=== PATIENT | male | born 1985 | race Two or more races ===

== ENCOUNTER 2017-04-15 22:45 | Emergency (ER) | payer OTHER ==
[2017-04-15] MEDS: IBUPROFEN 400 MG TABLET. PO (23:25)
[2017-04-15] MEDS: HYDROcodone/APAP 5/325MG 1 TAB TABLET PO (23:26)
== END 2017-04-15 23:30 | disposition home or self-care (01) ==
LOC: ER 22:45
DX: M70.31 Other bursitis of elbow, right elbow (principal); L03.113 Cellulitis of right upper limb
CPT/HCPCS: 99283

== ENCOUNTER 2019-03-28 20:29 | Emergency (ER) | payer OTHER ==
[~2019-03-28] VITALS: Ht 172.7 cm; Wt 88.5 kg
[~2019-03-28 20:29] MED LIST: ACET1TAB33 PO; CEPH-264 PO; NAPR-695 PO
[2019-03-28 20:47] LABS: BILIRUBIN,URINE NEGATIVE (NEG); CLARITY,URINE CLEAR; COLOR,URINE YELLOW; NITRITE,URINE NEGATIVE (NEG); PH,URINE 6.5; PROTEIN,URINE NEGATIVE (NEG-TRACE)
[2019-03-28 20:53] LABS: BACTERIA,URINE 0 /HPF (0-FEW); RBC,URINE RARE /HPF (0-2); SQUAMOUS EPITHELIAL CELL,UR OCC /LPF; WBC,URINE OCC /HPF (0-4)
--- NOTE | 2019-03-28 23:06 | PHYS DOC ---
Past Medical History Past Medical History: No Pertinent History Past Surgical History: No Surgical History Alcohol Use: Occasionally Drug Use: None Adult General Chief Complaint Chief Complaint: FLANK PAIN HPI HPI 33-year-old male presents to the emergency Department complaints of bilateral flank pain, lower abdominal pain. Patient states this started prostate one week ago. He describes sharp pain that comes and goes now constant. Denies any nausea, vomiting, diarrhea, fever. Denies in pain with urination or difficulty with urinating. He does drink alcohol. No past medical history. Nothing makes his pain worse, nothing makes his pain better. When asked why he presented to the emergency department after one week, he states the pains are more consistent today. Review of Systems Review of Systems Constitutional: Denies fever or chills [] Eyes: Denies change in visual acuity, redness, or eye pain [] HENT: Denies nasal congestion or sore throat [] Respiratory: Denies cough or shortness of breath [] Cardiovascular: No additional information not addressed in HPI [] GI: + abdominal pain, no nausea, vomiting, bloody stools or diarrhea [] : Denies dysuria or hematuria [] Musculoskeletal:bilateral flank pain Integument: Denies rash or skin lesions [] Neurologic: Denies headache, focal weakness or sensory changes [] All other systems were reviewed and found to be within normal limits, except as documented in this note. Current Medications Current Medications Current Medications Medications (Trade) Dose Ordered Sig/Carly Start Time Stop Time Status Last Admin Dose Admin Info (CONTRAST GIVEN -- Rx MONITORING) 1 each PRN DAILY PRN 03/28/19 23:45 03/30/19 23:44 Iohexol (Omnipaque 300 Mg/ml) 75 ml 1X ONCE 03/28/19 23:45 03/28/19 23:46 DC 03/28/19 23:53 75 ML Ketorolac Tromethamine (Toradol 30mg Vial) 30 mg 1X ONCE 03/28/19 23:15 03/28/19 23:16 DC 03/28/19 23:08 30 MG Allergies Allergies Allergies Coded Allergies Type Severity Reaction Last Updated Verified No Known Drug Allergies 04/15/17 No Physical Exam Physical Exam Constitutional: Well developed, well nourished, no acute distress, non-toxic appearance. [] HENT: Normocephalic, atraumatic, bilateral external ears normal, oropharynx moist, no oral exudates, nose normal. [] Eyes: PERRLA, EOMI, conjunctiva normal, no discharge. [] Cardiovascular:Heart rate regular rhythm, no murmur [] Lungs & Thorax: Bilateral breath sounds clear to auscultation [] Abdomen: Bowel sounds normal, soft, no tenderness, no masses, no pulsatile masses. [] Skin: Warm, dry, no erythema, no rash. [] Back: bilateral CVA tenderness however negative UA Extremities: No tenderness, no edema. [] Neurologic: Alert and oriented X 3, no focal deficits noted. [] Psychologic: Affect normal, judgement normal, mood normal. [] Current Patient Data Vital Signs Vital Signs Date Time Temp Pulse Resp B/P (MAP) Pulse Ox O2 Delivery O2 Flow Rate FiO2 03/28/19 22:34 85 17 96 Room Air 03/28/19 21:15 98.0 118/77 (91) 98.0 Lab Values Laboratory Tests Test 03/28/19 20:30 03/28/19 22:25 Urine Collection Type Void Urine Color Yellow Urine Clarity Clear Urine pH 6.5 Urine Specific [place] >=1.030 Urine Protein Negative mg/dL (NEG-TRACE) Urine Glucose (UA) Negative mg/dL (NEG) Urine Ketones (Stick) Negative mg/dL (NEG) Urine Blood Negative (NEG) Urine Nitrite Negative (NEG) Urine Bilirubin Negative (NEG) Urine Urobilinogen Dipstick 1.0 mg/dL (0.2 mg/dL) Urine Leukocyte Esterase Negative (NEG) Urine RBC Rare /HPF (0-2) Urine WBC Occ /HPF (0-4) Urine Squamous Epithelial Cells Occ /LPF Urine Bacteria 0 /HPF (0-FEW) Urine Mucus Marked /LPF White Blood Count 11.0 x10^3/uL (4.0-11.0) Red Blood Count 5.08 x10^6/uL (4.30-5.70) Hemoglobin 15.5 g/dL (13.0-17.5) Hematocrit 45.9 % (39.0-53.0) Mean Corpuscular Volume 90 fL (79-100) Mean Corpuscular Hemoglobin 31 pg (25-35) Mean Corpuscular Hemoglobin Concent 34 g/dL (31-37) Red Cell Distribution Width 13.3 % (11.5-14.5) Platelet Count 210 x10^3/uL (140-400) Neutrophils (%) (Auto) 60 % (31-73) Lymphocytes (%) (Auto) 27 % (24-48) Monocytes (%) (Auto) 10 % (0-9) H Eosinophils (%) (Auto) 2 % (0-3) Basophils (%) (Auto) 0 % (0-3) Neutrophils # (Auto) 6.6 x10^3/uL (1.8-7.7) Lymphocytes # (Auto) 3.0 x10^3/uL (1.0-4.8) Monocytes # (Auto) 1.1 x10^3/uL (0.0-1.1) Eosinophils # (Auto) 0.3 x10^3/uL (0.0-0.7) Basophils # (Auto) 0.0 x10^3/uL (0.0-0.2) Sodium Level 142 mmol/L (136-145) Potassium Level 3.4 mmol/L (3.5-5.1) L Chloride Level 102 mmol/L (98-107) Carbon Dioxide Level 30 mmol/L (21-32) Anion Gap 10 (6-14) Blood Urea Nitrogen 16 mg/dL (8-26) Creatinine 0.9 mg/dL (0.7-1.3) Estimated GFR (Cockcroft-Gault) 97.8 BUN/Creatinine Ratio 18 (6-20) Glucose Level 82 mg/dL (70-99) Calcium Level 8.8 mg/dL (8.5-10.1) Total Bilirubin 0.6 mg/dL (0.2-1.0) Aspartate Amino Transferase (AST) 19 U/L (15-37) Alanine Aminotransferase (ALT) 40 U/L (16-63) Alkaline Phosphatase 80 U/L (46-116) Total Protein 7.9 g/dL (6.4-8.2) Albumin 4.1 g/dL (3.4-5.0) Albumin/Globulin Ratio 1.1 (1.0-1.7) Lipase 113 U/L (73-393) Laboratory Tests 03/28/19 22:25 Laboratory Tests 03/28/19 22:25 EKG EKG [] Radiology/Procedures Radiology/Procedures [] Course & Med Decision Making Course & Med Decision Making Pertinent Labs and Imaging studies reviewed. (See chart for details) [] 33-year-old male presents to the emergency Department complaints of bilateral flank pain, lower abdominal pain. Patient states this started prostate one week ago. He describes sharp pain that comes and goes now constant. Denies any nausea, vomiting, diarrhea, fever. Denies in pain with urination or difficulty with urinating. He does drink alcohol. No past medical history. Nothing makes his pain worse, nothing makes his pain better. When asked why he presented to the emergency department after one week, he states the pains are more consistent today. Labs and Imaging reviewed Patient provided with Toradol IV however no improvement CT scan of abdomen and pelvis without acute process Recommend anti-inflammatory and muscle relaxer on dc Recommend follow up with PCP/Establish care Return precautions provided Dragon Disclaimer Dragon Disclaimer This electronic medical record was generated, in whole or in part, using a voice recognition dictation system. Departure Departure Impression: Primary Impression: Bilateral flank pain Disposition: HOME, SELF-CARE Condition: LEFT WITHOUT BEING SEEN Referrals: NO PCP (PCP) Patient Instructions: Flank Pain, [id number] Additional Instructions: Recommend follow up with PCP 3 - 5 days Return to the ER with worsening symptoms, intractable pain, fever, altered mental status Tylenol/Motrin as needed for pain Flexeril/[place] x 2 days as needed Scripts Cyclobenzaprine Hcl (CYCLOBENZAPRINE HCL) 5 Mg Tablet 1 TAB PO TID for 5 Days, #15 TAB Prov: VENANCIO GLEZ MD 03/29/19 Hydrocodone/Apap 5-325 (NORCO 5-325 TABLET) 1 Each Tablet 1 TAB PO PRN Q6HRS PRN for PAIN, #10 TAB 0 Refills Prov: VENANCIO GLEZ MD 03/29/19 VENANCIO GLEZ MD Mar 28, 2019 23:06
[2019-03-28 23:15] LABS: BASO % 0 % (0-3); EOS # 0.3 x10^3/uL (0.0-0.7); EOS % 2 % (0-3); HEMATOCRIT 45.9 % (39.0-53.0); HEMOGLOBIN 15.5 g/dL (13.0-17.5); LYMPH % 27 % (24-48); MEAN CORPUSCULAR HEMOGLOBIN 31 pg (25-35); MEAN CORPUSCULAR HGB CONC 34 g/dL (31-37); MEAN CORPUSCULAR VOLUME 90 fL (79-100); MONO # 1.1 x10^3/uL (0.0-1.1); MONO % 10 % (0-9); NEUT # 6.6 x10^3/uL (1.8-7.7); NEUT % 60 % (31-73); PLATELET COUNT 210 x10^3/uL (140-400); RED BLOOD COUNT 5.08 x10^6/uL (4.30-5.70); RED CELL DISTRIBUTION WIDTH 13.3 % (11.5-14.5)
[2019-03-28] MEDS ORDERED: KETOROLAC 30 MG/ML VIAL. IVP ONE (23:15)
[2019-03-28 23:21] LABS: CALCIUM 8.8 mg/dL (8.5-10.1); CREATININE 0.9 mg/dL (0.7-1.3); GFR 97.8; POTASSIUM 3.4 mmol/L (3.5-5.1)
[2019-03-28 23:27] LABS: ALBUMIN 4.1 g/dL (3.4-5.0); ALBUMIN/GLOBULIN RATIO 1.1 (1.0-1.7); TOTAL BILIRUBIN 0.6 mg/dL (0.2-1.0); TOTAL PROTEIN 7.9 g/dL (6.4-8.2)
[2019-03-28] MEDS ORDERED: CONTRAST GIVEN. MC PRN (23:45)
[2019-03-28] MEDS ORDERED: IOHEXOL 300 MG/ML 100ML VIAL. IV ONE (23:45)
--- NOTE | 2019-03-29 00:06 | RAD ---
CT ABD PELV W/ IV CONTRST ONLY History: Lower abdominal pain Comparison: None. Technique: After administration of intravenous contrast, helical CT of the abdomen and pelvis was performed from the lung bases through the ischial tuberosities. Coronal and sagittal reconstructions were obtained. 75 mL of Omnipaque 300 were used. One or more of the following dose reduction techniques were utilized: Automated exposure control (AEC), Adjustment of mA and/or kV according to patient size, Use of iterative reconstruction technique such as ASiR, CT scan done according to ALARA and image gently/image wisely Abdomen Findings: The visualized lung bases are clear. Hepatic steatosis. The gallbladder, pancreas, spleen, and bilateral adrenal glands are normal. Symmetric renal enhancement. There is no focal renal mass. There is no hydronephrosis. The visualized loops of small bowel are normal. The visualized loops of large bowel are normal. There is no evidence of bowel obstruction. Appendix is normal. There is no free fluid. There is no mesenteric or retroperitoneal adenopathy. The abdominal aorta is normal in caliber. Pelvis Findings: Urinary bladder is normal. No pelvic free fluid. There is no pelvic or inguinal adenopathy. There is no acute bony abnormality. IMPRESSION: 1. No acute abdominal process. 2. Diffuse hepatic steatosis. Electronically signed by: Niraj Smith MD (03/29/2019 12:03 AM) [id number]
[2019-03-29] MEDS ORDERED: HYDR-3164 PO (00:22)
[2019-03-29] MEDS ORDERED: CYCL5TAB PO (00:22)
[2019-03-29 00:35] VITALS: BP 144/77
== END 2019-03-29 00:38 | disposition home or self-care (01) ==
LOC: ER 20:29
DX: R10.32 Left lower quadrant pain (principal); R10.31 Right lower quadrant pain
CPT/HCPCS: 36415; 74177; 80053; 81001; 83690; 85025; 96374; 99285; J1885; Q9967

== ENCOUNTER 2021-05-29 13:52 | Emergency (ER) | payer OTHER ==
[~2021-05-29] VITALS: Ht 175.3 cm; Wt 88.6 kg
[~2021-05-29 13:52] MED LIST changes: +CYCL5TAB PO; +HYDR-3164 PO
[2021-05-29 13:56] VITALS: BP 152/88
--- NOTE | 2021-05-29 13:59 | PHYS DOC ---
Past Medical History Past Medical History: No Pertinent History Past Surgical History: No Surgical History Smoking Status: Never Smoker Alcohol Use: Occasionally Drug Use: None Adult General Chief Complaint Chief Complaint: TOE PROBLEM [facility] Patient is a 35 year old male who presents with toe injury. Patient complains of injury to the left great toe. He stubbed it 2 days earlier. He woke this morning with significant ecchymosis and ongoing pain. Decided to come to the ER. No other injuries. No break in the skin. Review of Systems Review of Systems Constitutional: Denies fever or chills Eyes: Denies change in visual acuity, redness, or eye pain HENT: Denies nasal congestion or sore throat Respiratory: Denies cough or shortness of breath Cardiovascular: No additional information not addressed in HPI GI: Denies abdominal pain, nausea, vomiting, bloody stools or diarrhea : Denies dysuria or hematuria Musculoskeletal: as documented in HPI Integument: Denies rash or skin lesions Neurologic: Denies headache All other systems were reviewed and found to be within normal limits, except as documented in this note. Allergies Allergies Allergies Coded Allergies Type Severity Reaction Last Updated Verified No Known Drug Allergies 04/15/17 No Physical Exam Physical Exam Constitutional: Well developed, well nourished, no acute distress, non-toxic appearance Eyes: PERRLA, EOMI Neck: Normal range of motion Cardiovascular:Heart rate regular rhythm Lungs & Thorax: Bilateral breath sounds clear to auscultation Back: Normal ROM Extremities: Mild soft tissue swelling is present about the left great toe. Significant ecchymosis. Distal capillary refill less than 2 seconds. Sensation light touch is intact. Neurologic: Alert and oriented X 3 Psychologic: Affect normal Current Patient Data Vital Signs Vital Signs Date Time Temp Pulse Resp B/P (MAP) Pulse Ox O2 Delivery O2 Flow Rate FiO2 05/29/21 13:56 98.1 107 16 152/88 (109) 97 Room Air 98.1 EKG EKG [] Radiology/Procedures Radiology/Procedures [] Course & Med Decision Making Course & Med Decision Making Pertinent Labs and Imaging studies reviewed. (See chart for details) ED summary: Patient seen in the emergency department for minor injury to the left great toe. Plain film imaging completed and suspicious for small avulsion type fracture. No other significant injury. In the ER, he is placed in postop shoe. Recommend use Tylenol or Motrin as needed for pain. Keep elevated as much possible. Wear postop shoe for 7 to 14 days. Otherwise, return to normal activities. Follow-up with primary care doctor as needed. No indication for Ortho referral. Wali Disclaimer Wali Disclaimer This electronic medical record was generated, in whole or in part, using a voice recognition dictation system. Departure Departure Impression: Primary Impression: Fracture of toe Disposition: HOME / SELF CARE / HOMELESS Condition: GOOD Referrals: NO PCP (PCP) Patient Instructions: Toe Fracture STEPHIE ARIAS DO May 29, 2021 13:59
--- NOTE | 2021-05-29 14:31 | RAD ---
EXAM: Right great toe, 3 views. HISTORY: Trauma. COMPARISON: None. FINDINGS: 3 views of the right great toe are obtained. There is a mildly displaced fracture fragment involving the base of the first proximal phalanx. IMPRESSION: Minimally displaced fracture fragment involving the base of the first proximal phalanx. Electronically signed by: Katelin Teague MD (05/29/2021 2:29 PM) [id number]
[2021-05-29] MEDS ORDERED: IV NORMAL SALINE 1000ML BAG 1,000 ML IV ONE (15:00)
[2021-05-29] MEDS ORDERED: ACETAMINOPHEN 650 MG SUPP.RECT. PR ONE (15:00)
== END 2021-05-29 14:59 | disposition home or self-care (01) ==
LOC: ER 13:52
DX: S92.412A Displaced fracture of proximal phalanx of left great toe, initial encounter for closed fracture (principal); W22.8XXA Striking against or struck by other objects, initial encounter; Y93.89 Activity, other specified; Y92.89 Other specified places as the place of occurrence of the external cause; Y99.8 Other external cause status
CPT/HCPCS: 73660; 99283

== ENCOUNTER → 2021-06-28 | Outpatient (CLI) | payer OTHER ==
[2021-05-29 13:56] VITALS: BP 152/88
--- NOTE | 2021-06-28 13:48 | RAD ---
EXAM: Left great toe, 2 views. HISTORY: Fracture. COMPARISON: 05/29/2021 FINDINGS: 2 views of the left great toe are obtained. The previously demonstrated fracture involving the medial base of the first proximal phalanx is not seen, likely due to image projection or interval healing. No foreign body is seen. IMPRESSION: Nonvisualization of the previously demonstrated fracture involving the base of the first proximal phalanx due to image projection or interval healing. Electronically signed by: Katelin Teague MD (06/28/2021 1:46 PM) [id number]
== END ==
LOC: RAD 13:06
PROVIDERS: ATTEND Family Medicine
DX: S92.401D Displaced unspecified fracture of right great toe, subsequent encounter for fracture with routine healing (principal); X58.XXXD Exposure to other specified factors, subsequent encounter
CPT/HCPCS: 73660